=== PATIENT | male | born 1960 | race Caucasian/White ===

== ENCOUNTER 2023-02-04 12:09 | Outpatient (OUT) | payer OTHER, SELFPAY ==
[2023-02-04 12:36] LABS: Basophils Percent Auto 0.6 % (0.2-2.0); Eosinophils Absolute Auto 0.1 10^3/uL (0.0-0.7); Eosinophils Percent Auto 1.9 % (0.9-7.0); Hematocrit 42.9 % (42.0-54.0); Hemoglobin 14.1 g/dL (14.0-18.0); Immature Granulocytes Abs Auto 0.02 10^3/uL (0.00-0.03); Immature Granulocytes Pct Auto 0.3 % (0.0-0.5); Lymphocytes Absolute Auto 1.8 10^3/uL (1.2-3.8); Lymphocytes Percent Auto 29.1 % (20.5-60.0); Mean Corpuscular HGB Conc 32.9 g/dL (29.9-35.2); Mean Corpuscular Hemoglobin 28.3 pg (25.9-34.0); Mean Platelet Volume 9.5 fL (9.5-13.5); Monocytes Absolute Auto 0.5 10^3/uL (0.3-0.8); Monocytes Percent Auto 7.9 % (1.7-12.0); Neutrophils Absolute Auto 3.7 10^3/uL (1.4-6.5); Neutrophils Percent Auto 60.2 % (43.0-75.0); Platelet Count 235 10^3/uL (150-450); Red Blood Count 4.99 10^6/uL (4.70-6.10); Red Cell Distribution Width 13.8 % (11.0-15.0); White Blood Count 6.2 10^3/uL (4.0-11.0)
[2023-02-04 13:16] LABS: Alanine Aminotransferase 28 U/L (16-63); Albumin Globulin Ratio 1.1; Albumin Level 3.8 g/dL (3.4-5.0); Alkaline Phosphatase 67 U/L (46-116); Anion Gap 13.1; Aspartate Amino Transferase 13 U/L (15-37); BUN Creatinine Ratio 17.5; Bilirubin Direct 0.1 mg/dL (0.0-0.2); Bilirubin Total 0.8 mg/dL (0.2-1.0); Calcium 8.6 mg/dL (8.5-10.1); Carbon Dioxide 25.8 mmol/L (21.0-32.0); Chloride 103 mmol/L (98-107); Chol HDL Ratio 6.7; Cholesterol 242 mg/dL (<=200); Estimated GFR (African America >60 (>=60); Estimated GFR (Non-African Ame >60 (>=60); Globulin 3.6 g/dL; Glucose 103 mg/dL (74-106); HDL Cholesterol 36 mg/dL (40-60); Potassium 3.9 mmol/L (3.5-5.1); Sodium 138 mmol/L (136-145); Thyroid Stimulating Hormone 2.779 uIU/mL (0.358-3.740); Total Protein 7.4 g/dL (6.4-8.2); Triglycerides 171 mg/dL (<=150); VLDL CHOLESTEROL 34.2 mg/dL
[2023-02-04 13:23] LABS: Prostate Specific Antigen Scrn 0.36 ng/mL (<=4.00)
[2023-02-04 13:26] LABS: Estimated Average Glucose 128 mg/dL; Glycohemoglobin A1C 6.1 % (4.5-6.2)
== END 2023-02-04 12:10 | disposition home or self-care (01) ==
LOC: LAB 12:12
PROVIDERS: PCP Family Medicine; Visit Provider Family Medicine
DX: Z00.00 Encounter for general adult medical examination without abnormal findings (principal); N52.9 Male erectile dysfunction, unspecified
CPT/HCPCS: 36415; 80048; 80061; 80076; 83036; 84443; 85025; G0103

== ENCOUNTER 2025-01-10 10:43 | Outpatient (OUT) | payer MEDICARE, SELFPAY ==
--- OUTSIDE RECORDS SUMMARY | 2025-01-10 05:41 | XMS_ITS | Continuity of Care Document ---
Author Organization [facility] Address [address] [place] [address] Phone Care Team Providers Care Senior Hr Generalist Name Role Phone Sami Gaines MD Primary Care Provider [phone] Sami Gaines MD Attending Provider Care Teams Patient Care Team Team Status: Active Member Role/Relationship Status Dates Sami Gaines MD Primary Care Provider Active Patient Care Team Team Status: Inactive Member Role/Relationship Status Dates Sami Gaines MD Primary Care Provider Active S tart: January 10, 2025 End: January 10, 2025[facility] JESUS Gainesttending ProviderActiveStart: January 10, 2025 End: January 10, 2025 Chief Complaint and Reason for Visit Reason for Visit Admit Date Medicare annual wellness visit, subseque nt January 10, 2025 9:56am Allergies, Adverse Reactions, Alerts Allergen Type Severity Reaction Last Updated Verified Status lisinopril Allergy Unknown Cough January 10, 2025 10:14am Y es Active Social History Smoking Status Status Start Date End Date Date of Observa tion Ex-smoker (finding) January 10, 2025 10:15am Observation Status Observation Response Date of Response Legal Sex Male (finding) Sex Assigned At BirthMaleFebruary 1960 Problems Active Problems Problem Diagnosis/Recorded Date Onset Date Stat us Osteoarthritis, chronic January 06, 2025 11:40am Unk nown Active Bilateral leg edema January 10, 2025 10:17am Unknow n Active Medicare annual wellness vis it, subsequent January 10, 2025 10:17am Unknown Active Recurrent major depressive disorder January 10 10:17am Unknown Active Generalized anxiety disorder January 06, 2025 11:39a m Unknown Active Impotence of organic origin January 06, 2025 11:39am Unknown Active Essential hypertension, benign January 06, 2025 11:3 9am Unknown Active Dyslipidemia January 06, 2025 11:39am Unknown A ctive Encounter for long-term (cur rent) use of medications January 10, 2025 10:17am Unknown Active Prediabetes January 06, 2025 11:40am Unknown A ctive Obesity January 10, 2025 10:17am Unknown Active Inactive/Resolved Problems Problem Diagnosis/Recorded Date Onset Date Stat us Polyuria January 06, 2025 11:40am Unknown R esolved Medications Medication Status Dose Units Route Directions Qty Days Refills S tart Date Stop Date End Date Reason(s) Instructions Adherence Losartan 50 mg tablet Active 50 MG PO Daily 90 90 3 December 09, 2024 11:00pm Complies with drug therapyNifedipine 90 mg tablet extended wjumfsjFueunj25JLFM Kvscl71556Wkzqohy 2024 11:00pmComplies with drug therapySpironolactone 50 mg wczzeoKsjaem55TWUTDtulz81458Gdvqkbb 2024 11:00pmComplies with drug therapyFluoxetine 40 mg ooewmxeVhsksl93ITHLDahkeEyzlxpdw 6th, 2025 12:00am Complies with drug therapy Vital Signs Vital Reading Result Reference Range Collection Date/Time Height 74 [in_i] January 10, 2025 10:82huKwycqg249.74 kgJanuary 10, 2025 10:13amBody Zgfpneuerjv79.8 [degF]97.6-99.0January 10, 2025 10:13amHeart Rate84 /min 60-100January 10, 2025 10:13amRespiratory rate22 /zsr27-99GapbcyzzJanuary 10, 2025 10:13amOxygen saturation by Pulse giaqycae37 %95-100January 10, 2025 10:13am BP Desbfvij569 mm[Hg]100-140January 10, 2025 10:13amBP Ywllfcwqr92 mm[Hg] 60-100January 10, 2025 10:13amBMI (Body Mass Index)46.3 kg/g7KewwyrxwJanuary 10, 2025 10:13am Advance Directives Advance Directive Response Recorded Date/ Time Advance Directives No May 14 018 1:15pm Insurance Providers Guarantor Moustapha Alarcon Address [address] [place] [address] Info.Home Phone: Coverage Status Update:2025 Payer Group Member ID Coverage Type Subscriber Relationship to Subscriber Effective Date Expiration Date Scar PATEL/SAMUEL [id number] S [place] Id: [id number] [address] [place] [address] Home Phone: Email: [email or web address] Encounters Encounter Location(s) Arrival/Admit Date Discharge/Departure Date Discharge/Departure Disposition Provider(s) Departed Physician/ Provider Office Visit -[facility] Family Medicine Rod January 10, 2025 9:56am January 10, 2025 10:27am Discharged to home care or self care (routine discharge) Sami Gaines MD Recent Diagnosis Onset Date Admit Date Medicare annual wellness visit, subsequent Unkno wn January 10, 2025 9:56am Assessments Diagnosis Onset Date Resolution Status Admit Date Medicare annual wellness visit, subseque nt acuteNov2024 9:56am Plan of Treatment Future Tests Future scheduled test information is unavailable Pending Tests Test Name Ordered Date Scheduled Date Comprehensive Metabolic Panel January 10 10:22am Future Visits Future appointment information is unavailable Future Procedures Procedure Name Ordered Date Scheduled Date A1C with Estimated Average Glu January 10 10:22am Complete Blood Count Auto DiffNov2024 10:22amLipid PanelNov2024 10:22amPSA Screen (Yearly Only)January 10, 2025 10:22amThyroid Stimulating HormoneNov2024 10:22am Future Medications Future medication information is unavailable Patient Instructions Patient instructions are unavailable
--- OUTSIDE RECORDS SUMMARY | 2025-01-10 10:50 | XMS_ITS | Clinical Summary ---
Author Organization [facility] Address [id number] [address] [place] [address] Care Team Providers Care Chief Learning Officer Name Role Phone Sami Gaines MD Primary Care Provider [phone] Social History Tobacco UseTypesPacks/DayYears UsedDateSmoking Tobacco: Never AssessedChildcare AnswerDate QllwahecZmnquzxcuCgclyhv19/12/2019EmploymentAnswerDate Recorded LabviiknwkZulglay55/12/2019Sex and Gender InformationValueDate RecordedSex Assigned at BirthNot on fileLegal CaxXbqy8610/06/2014 11:35 AM EDTGender Identity Not on fileSexual OrientationNot on file Plan of Treatment Health MaintenanceDue DateLast DoneCommentsDepression Ojxnlomjt72/14/1972Tobacco Dxdhgrciu39/14/1972Adult BMI Ufudrpoty77/14/1978DTaP,Tdap and Td Vaccines (1 - Tdap)1978Zoster (Shingles) Vaccine (1 of 2)2009Fall Risk Screening 2024Influenza Wvrixzz1311/01/2024RSV ( or age 60+ yrs) (1 - 1-dose 75+ series)2034 [employer] Not on file Care Teams Team MemberRelationshipSpecialtyStart DateEnd Date Sami Gaines MD PCP - GeneralFamily Medicine07/07/24
--- OUTSIDE RECORDS SUMMARY | 2025-01-10 10:50 | XMS_ITS | Clinical Summary ---
Author Organization [facility] Address [address] [place] [address] Care Team Providers Care Operations Research Group Manager Name Role Phone Sami Gaines MD Primary Care Provider [phone] Allergies Active AllergyReactionsCriticalityNoted VkibMmrnujglOvrbmfkyguKocto52/14/2024 Medications MedicationSigDispense QuantityRefillsLast FilledStart DateEnd DateStatus losartan (Cozaar) 50 MG tablet Indications:Essential (primary) hypertensionTAKE 1 TABLET BY MOUTH DAILY 90 tablet 4Active NIFEdipine XL (Procardia XL) 90 MG 24 hr tablet Indications:Essential hypertension, benignTake 1 tablet (90 mg) by mouth Daily Do not crush, chew, or split. 90 tablet 4Active spironolactone (Aldactone) 50 MG tablet Indications:Edema of both legsTAKE 1 TABLET BY MOUTH ONCE DAILY 90 tablet 5Active FLUoxetine (PROzac) 40 MG capsule Indications:Current mild episode of major depressive disorder without prior episodeTAKE 1 CAPSULE BY MOUTH DAILY 90 capsule 5Active Active Problems ProblemNoted DateDiagnosed ViiyLicnnbnckvz44/06/2025Encounter for long-term (current) use of pzraxeaxfii10/06/7848Gxhzkstv80/06/2025Screening PSA (prostate specific antigen)07/06/2024Streptococcus vcyqiyvv51/06/2025 Assessment & Plan (07/06/2024 11:23 AM EDT): C/o sore throat and with strep. Treat with amoxicillin. Class 3 severe obesity due to excess calories with serious comorbidity and body mass index (BMI) of45.0 to 49.9 in adult11/07/2023 Assessment & Plan (07/06/2024 11:22 AM EDT): Weight loss indicated. Assessment & Plan (11/07/2023 9:46 AM EDT): Weight down 7 pounds since last visit. Essential hypertension, txntqg2205/28/2023 Assessment & Plan (07/06/2024 11:22 AM EDT): BP elevated today but previously controlled and monitor PRN. Assessment & Plan (11/07/2023 9:46 AM EDT): BP elevated today but previously controlled and monitor PRN. Assessment & Plan (05/28/2023 7:39 AM EDT): BP controlled and monitor PRN. Bilateral leg edema05/28/2023 Assessment & Plan (07/06/2024 11:22 AM EDT): Edema controlled with medication and continue. Elevate legs PRN. Assessment & Plan (11/07/2023 9:45 AM EDT): Edema controlled with medication and continue. Elevate legs PRN. Assessment & Plan (05/28/2023 7:39 AM EDT): Edema controlled with medication and continue. Elevate legs PRN. Allergic rhinitis due to pncjuj0705/28/2023 Assessment & Plan (11/07/2023 9:45 AM EDT): Symptoms controlled with medication and continue. Assessment & Plan (05/28/2023 7:40 AM EDT): Symptoms controlled with medication and continue. Cetwrxgmdjda95/27/2024Generalized anxiety ceryqndw29/27/2024 Assessment & Plan (07/06/2024 11:22 AM EDT): Mood controlled with prozac and continue. Assessment & Plan (11/07/2023 9:46 AM EDT): Mood controlled with prozac and continue. Assessment & Plan (05/28/2023 7:39 AM EDT): Mood controlled with prozac and continue. Impotence of organic wvldne1805/28/2023Osteoarthritis, rwfmjkf0605/28/2023urrent mild episode of major depressive disorder without prior llsrhhx1905/28/2023 Assessment & Plan (07/06/2024 11:22 AM EDT): Mood controlled with prozac and continue. Assessment & Plan (11/07/2023 9:45 AM EDT): Mood controlled with prozac and continue. Assessment & Plan (05/28/2023 7:39 AM EDT): Mood controlled with prozac and continue. Resolved Problems ProblemNoted DateDiagnosed DateResolved DateURI, acute Family History Medical HistoryRelationNameCommentsHeart diseaseFatherRelationNameStatusComments Father Social History Tobacco UseTypesPacks/DayYears UsedDateSmoking Tobacco: NeverSmokeless Tobacco: Never Tobacco Cessation:Counseling Given: Not Answered B1300 Health LiteracyAnswerDate RecordedHow often do you need to have someone help you when you read instructions, pamphlets, or other written material from your doctor or pharmacy?Never05/05/2024Social Connection and Isolation Panel AnswerDate RecordedIn a typical week, how many times do you talk on the phone with family, friends, or neighbors?More than three times a week05/05/2024How often do you get together with friends or relatives?Twice a week05/05/2024How often do you attend quaker or lutheran services?Never05/05/2024Do you belong to any clubs or organizations such as quaker groups, unions, fraternal or athletic groups, or school groups?Yes05/05/2024How often do you attend meetings of the clubs or organizations you belong to?More than 4 times per year05/05/2024re you , , , , never , or living with a partner? Slarvlf5505/05/2024UDIT-CAnswerDate RecordedQ1: How often do you have a drink containing alcohol?Never05/05/2024Q2: How many drinks containing alcohol do you have on a typical day when you are drinking?Patient does not drink05/05/2024Q3: How often do you have six or more drinks on one occasion?Never05/05/2024Overall Financial Resource Strain (CARDIA)AnswerDate RecordedHow hard is it for you to pay for the very basics like food, housing, medical care, and heating?Not hard at all05/05/2024Finmount[facility]star healthcare [facility] - Occupational Stress QuestionnaireAnswerDate RecordedDo you feel stress - tense, restless, nervous, or anxious, or unable to sleep at night because yourmind is troubled all the time - these days?To some pbbisn7305/05/2024Exercise Vital SignAnswerDate Recorded On average, how many days per week do you engage in moderate to strenuous exercise (like a brisk walk)?5 days05/05/2024On average, how many minutes do you engage in exercise at this level?10 min05/05/2024Hunger Vital SignAnswerDate RecordedWithin the past 12 months, you worried that your food would run out before you got the money to buymore.Never true05/05/2024Within the past 12 months, the food you bought just didn't last and you didn't have money to get more.Never true05/05/2024PRAPARE - TransportationAnswerDate RecordedIn the past 12 months, has lack of transportation kept you from medical appointments or from getting medications?No05/05/2024In the past 12 months, has lack of transportation kept you from meetings, work, or from getting things needed for daily living?No05/05/2024Housing Stability Vital SignAnswerDate RecordedIn the last 12 months, was there a time when you were not able to pay the mortgage or rent on time?No05/05/2024In the past 12 months, how many times have you moved where you were living?t any time in the past 12 months, were you homeless or living in a fci (including now)?No05/05/2024Sex and Gender InformationValueDate RecordedSex Assigned at BirthNot on fileLegal SexMale 05/15/2022 7:22 PM EDTGender UyfhtameKarq34/15/2023 7:22 PM EDTSexual OrientationNot on file Last Filed Vital Signs Vital SignReadingTime TakenCommentsBlood Aawzksiu228/8207/06/2024 10:45 AM EDT Jytvq451507/06/2024 10:45 AM RISLuihkkwsgsi50.2 ??C (97.1 ??F)07/06/2024 10:45 AM EDTRespiratory Sloe452307/06/2024 10:45 AM EDTOxygen Dtwsskgfzr74%07/06/2024 10:45 AM EDTInhaled Oxygen Concentration--Xuipfa932 kg (361 lb)07/06/2024 10:45 AM EDT Mrnpno130.5 cm (6' 3 )07/06/2024 10:45 AM EDTBody Mass Index45.12007/06/2024 10:45 AM EDT Plan of Treatment Not on file Insurance Care Teams Team MemberRelationshipSpecialtyStart DateEnd Date Sami Gaines MD PCP - GeneralFamily Medicine04/16/23
--- OUTSIDE RECORDS SUMMARY | 2025-01-10 10:52 | XMS_ITS | CCD ---
Author Organization [facility] Team Providers Care Entry Level Software Engineer Name Role Phone DR SAMI RODRIGUEZ Attending Unavailable JENNIFER, DR SAMI Rand Consulting DR SAMI Esteves Primary Care Unavailable JENNIFER, DR SAMI Rand Admitting Unavailable Sami Rodriguez MD Primary Care Provider [phone] TELMA SHERIDAN Attending Unavailable JENNIFER, SAMI Attending Unavailable SAMI RODRIGUEZ Attending Unavailable Sami Rodriguez MD Primary Care Provider Allergies Allergy ClassificationReported Allergen(s)Allergy TypeDate of OnsetReaction(s) Facility (9 sources)LisinoprilPropensity to adverse mmmgainca97-73-8699DqlpqBTVO Healthcare Medications Current Medications MedicationDrug Class(es)DatesSig (Normalized)Sig (Original)amoxicillin 875 mg oral tablet (2 sources)Penicillin-class AntibacterialStart: 07-06-2024 End: 24-42-7749xdbt 1 tablet by mouth in the morningamoxicillin (Amoxil) 875 MG tablet Indications: Streptococcus exposure Take 1 tablet (875 mg) by mouth in the morning and 1 tablet (875 mg) before bedtime. Do all this for 10 days. 20 tablet 07/06/2024 07/16/2024 ActiveFLUoxetine 40 mg oral capsule (9 sources)Serotonin Reuptake InhibitorStart: 05-14-2023 End: 27-39-5047nfqs 1 capsule by mouth once dailyFLUoxetine (PROzac) 40 MG capsule Indications: Current mild episode of major depressive disorder without prior episode (HCC) (CMS/HCC) TAKE 1 CAPSULE BY MOUTH DAILY 90 capsule 3 05/12/2024 Activelosartan potassium 50 mg oral tablet (9 sources)Angiotensin 2 Receptor BlockerStart: 13-80-0249cqmn 1 tablet by mouth once dailylosartan (Cozaar) 50 MG tablet Indications: Essential (primary) hypertension (CMS/HCC) TAKE 1 TABLET BY MOUTH DAILY 90 tablet 3 11/26/2023 Activetake 1 tablet by mouth in the morninglosartan (Cozaar) 50 MG tablet Take 50 mg by mouth in the morning. Activemethocarbamol 750 mg oral tablet (9 sources)Muscle Relaxant End: 73-27-0447wblb 1 tablet by mouth three times daily as needed for muscle spasmsmethocarbamol (Robaxin) 750 MG tablet Take 750 mg by mouth 3 (three) times a day as needed for muscle spasms 07/06/2024 DiscontinuedNIFEdipine 90 mg osmotic 24 hr extended release oral tablet (9 sources)Dihydropyridine Calcium Channel BlockerStart: 12-10-2023 End: 62-87-3396qink 1 tablet by mouth once dailyNIFEdipine XL (Procardia XL) 90 MG 24 hr tablet Indications: Essential hypertension, benign (CMS/HCC) Take 1 tablet (90 mg) by mouth Daily Do not crush, chew, or split. 90 tablet 3 12/10/2023 12/09/2024 Activetake 1 tablet by mouth every twenty-four hours in the morningNIFEdipine XL (Procardia XL) 90 MG 24 hr tablet Take 90 mg by mouth in the morning. Do not crush, chew, or split.. Activesildenafil 50 mg oral tablet (9 sources)Phosphodiesterase 5 Inhibitor End: 36-01-5870cpiu 1 tablet by mouth every twenty-four hours as needed sildenafil (Viagra) 50 MG tablet Take 50 mg by mouth Daily as needed for erectile dysfunction 07/06/2024 Discontinuedspironolactone 50 mg oral tablet (9 sources)Aldosterone AntagonistStart: 81-05-6496qehp 1 tablet by mouth once dailyspironolactone (Aldactone) 50 MG tablet Indications: Edema of both legs TAKE 1 TABLET BY MOUTH ONCEDAILY 90 tablet 3 03/08/2024 ActiveStart: 03-07-2023 take 1 tablet by mouth once dailyspironolactone (Aldactone) 50 MG tablet Indications: Edema of both legs TAKE 1 TABLET BY MOUTH ONCEDAILY 90 tablet 3 03/07/2023 Active Problems Active Problems Problem ClassificationProblemDateDocumented DateEpisodic/ChronicAnxiety disorders (13 sources)Generalized anxiety disorder; Translations: [Generalized anxiety disorder]Onset: 301253-46-1166UfearpmJhunhjku mellitus without complication (4 sources)Prediabetes; Translations: [Prediabetes]Onset: EpisodicDisorders of lipid metabolism (11 sources)Dyslipidemia; Translations: [Hyperlipidemia, unspecified]Onset: 983441-80-3009NhobwbkWdaiwcjho hypertension (13 sources)Benign essential hypertension; Translations: [Essential (primary) hypertension]Onset: 096407-88-9109IzgwlhsPjcsrpcvwqoic symptoms and ill- defined conditions (4 sources)Polyuria; Translations: [Polyuria]Onset: 209184-70-9356Kovlwkqt Immunizations and screening for infectious disease (4 sources)Exposure to Streptococcus; Translations: [Contact with and (suspected) exposure to other bacterial communicable diseases]Onset: 07-06-2024 82-35-2348QoodzoxhNxoa disorders (13 sources)Mild major depression, single episode; Translations: [Major depressive disorder, single episode, mild]Onset: hronic Osteoarthritis (9 sources)Chronic osteoarthritis; Translations: [Unspecified osteoarthritis, unspecified site]Onset: 148669-25-1142WvodopnQfloh aftercare (4 sources)Long-term current use of drug therapy; Translations: [Other assisted (current) drug therapy]Onset: 803562-62-1889TwtpjiefWwffu ear and sense organ disorders (2 sources)Decreased hearing ; Translations: [Unspecified hearing loss, bilateral]61-78-0723UapuncsHiixr ear and sense organ disorders (2 sources)Impacted cerumen of bilateral ears; Translations: [Impacted cerumen, bilateral]83-19-8586TnpabpseKbrtk male genital disorders (9 sources)Secondary erectile dysfunction; Translations: [Male erectile dysfunction, unspecified]Onset: 709776-15-9655KljuvwdDjljt nutritional; endocrine; and metabolic disorders (2 sources)Body mass index 40+ - severely obese; Translations: [Body mass index (BMI) 40.0-44.9, adult]36-46-4625PafffrrYxyrt nutritional; endocrine; and metabolic disorders (6 sources)Morbid obesity; Translations: [Morbid (severe) obesity due to excess calories]Onset: 905377-18-7155UunrepvPdoom nutritional; endocrine; and metabolic disorders (4 sources)Severe obesity; Translations: [Class 3 severe obesity due to excess calories with serious comorbidity and body mass index (BMI) of 45.0 to 49.9 in adult]Onset: 559035-27-0668BdjjhenXabzw screening for suspected conditions (not mental disorders or infectious disease) (7 sources)Encounter for screening for malignant neoplasm of prostate; Translations: [Patient encounter status]Onset: 687596-15-1078EngehqtpNpysh upper respiratory disease (11 sources)Allergic rhinitis due to pollen; Translations: [Allergic rhinitis due to pollen]Onset: 380996-86-3930YebtrbsZsmaopoj codes; unclassified (13 sources)Bilateral lower limb edema; Translations: [Localized edema]Onset: 040279-18-8862Ccztdioa Past or Other Problems Problem ClassificationProblemDateDocumented DateEpisodic/ChronicOther upper respiratory infections (9 sources)Acute upper respiratory infection; Translations: [Acute upper respiratory infection, unspecified]Onset: 02-03-2023 Resolved: 755783-45-9529IfmduikjJdrcmkgbgrur (2 sources)Patient encounter vaighh64-17-2134 Results Test NameValueInterpretationReference RangeFacilityCBC AUTO DIFFon 11-27-2021 BASO #0.0 103/ulNormal0.0-0.1The [facility] AdministrationComment on above:Performed By: #### CBC #### [facility] [address], [place] [address] Dr. Kulwinder Kingsophils/100 WBC (Bld)0.6 %Normal0.2-2.0[facility] Comment on above:Performed By: #### CBC #### [facility] [address], [place] [address] Dr. Miramontes ChangEHiwot #0.1 103/ulNormal0.0-0.7The [facility] AdministrationComment on above: Performed By: #### CBC #### [facility] [address] [place] [address] Dr. Kulwinder Foremanosinophils/100 WBC (Bld)1.5 %Normal0.9-7.0The [facility] on above:Performed By: #### CBC #### [facility] [address] [place] [address] Dr. Kulwinder Foremanrythrocyte distribution width (RBC) [Ratio]14.4 %Krqrsw09.0-15.0 The [facility] AdministrationComment on above:Performed By: #### CBC #### [facility] [address] [place] [address] Dr. Kulwinder ClevelandHematocrit (Bld) [Volume fraction]46.8 %Huoekh75.0-54.0The [facility] AdministrationComment on above:Performed By: #### CBC #### [facility] [address] [place] [address] Dr. Kulwinder ClevelandHemoglobin (Bld) [Mass/Vol]14.6 g/hAHwonas41.0-18.0The [facility] AdministrationComment on above:Performed By: #### CBC #### [facility] [address] [place] [address] Dr. Kulwinder Alford #0.02 10e3/ulNormal0.00-0.03The [facility] Health AdministrationComment on above:Performed By: #### CBC #### [facility] [address] [place] [address] Dr. Kulwinder Alford %0.3 %Normal0.0-0.5The [facility] AdministrationComment on above: Performed By: #### CBC #### [facility] [address] [place] [address] Dr. Kulwinder SchwartzH #1.6 103/ulNormal1.2-3.8The [facility] AdministrationComment on above:Performed By: #### CBC #### [facility] [address] [place] [address] Dr. Kulwinder Welchmphocytes/100 WBC (Bld)24.0 %Pzikip86.5-60.0The [facility] AdministrationComment on above:Performed By: #### CBC #### [facility] [address] [place] [address] Dr. Kulwinder Crawford DIFF REQNONormalThe Veterans Health AdministrationComment on above: Performed By: #### CBC #### [facility] [address] [place] [address] Dr. Kulwinder Sanchez (RBC) [Entitic mass]27.8 tvUcqckt71.9-34.0The [facility] AdministrationComment on above:Performed By: #### CBC #### [facility] [address] [place] [address] Dr. Kulwinder Sanchez (RBC) [Mass/Vol]31.2 g/aFTxadvw74.9-35.2The [facility] AdministrationComment on above:Performed By: #### CBC #### [facility] [address] [place] [address] Dr. Kulwinder Chaves (RBC) [Entitic vol]89.0 jCYbjevr93.0-94.0The [facility] AdministrationComment on above:Performed By: #### CBC #### [facility] [address] [place] [address] Dr. Kulwinder Potts #0.5 103/ulNormal0.3-0.8The [facility] AdministrationComment on above:Performed By: #### CBC #### [facility] [address] [place] [address] Dr. Kulwinder Owensocytes/100 WBC (Bld)7.9 %Normal1.7-12.0[facility] Comment on above:Performed By: #### CBC #### [facility] [address] [place] [address] Dr. Kulwinder Lopez #4.4 103/ulNormal1.4-6.5The [facility] AdministrationComment on above:Performed By: #### CBC #### [facility] [address] [place] [address] Dr. Yilan ChangNeutrophils/100 WBC (Bld)65.7 %Hezzin64.0-75.0The [facility] AdministrationComment on above:Performed By: #### CBC #### [facility] [address] [place] [address] Dr. Kulwinder Chavez mean volume (Bld) [Entitic vol]10.1 fLNormal9.5-13.5The [facility] Health AdministrationComment on above:Performed By: #### CBC #### [facility] [address] [place] [address] Dr. Kulwinder ClevelandPLT307 103/vnAztktu387-143Ysc [facility] AdministrationCommymichigan [facility] center on above: Performed By: #### CBC #### [facility] [address] [place] [address] Dr. Kulwinder ClevelandRBC5.26 106/ulNormal4.70-6.10The [facility] AdministrationComment on above:Performed By: #### CBC #### [facility] [address] [place] [address] Dr. Kulwinder ClevelandWBC6.8 103/ulNormal4.0-11.0The [facility] AdministrationComment on above: Performed By: #### CBC #### [facility] [address] [place] [address] Dr. Kulwinder ClevelandGLYCOHEMOGLOBIN A1Con 91-20-6722MNU RECOMMENDATIONSEE BELOWNormal The [facility] AdministrationCommymichigan medical center on above:Result Comment: ADA RECOMMENDED LIMIT 4.0 - 6.0 ADA THERAPEUTIC TARGET < 7.0 ACTION SUGGESTED > 7.0Performed By: #### A1C #### [facility] [address] [place] [address] Dr. Kulwinder ClevelandGlucose [Mass/Vol]128 mg/dLNormalThCleveland Clinic Avon HospitalCommymichigan medical center on above:Performed By: #### A1C #### [facility] [address] [place] [address] Dr. Kulwinder ClevelandHbA1c (Bld) [Mass fraction]6.1 %Normal4.5-6.2The [facility] AdministrationCommymichigan medical center on above:Performed By: #### A1C #### [facility] [address] [address] [address] Kulwinder CifuentesID PROFILEon 87-47-1039ZFXM-HDL RATIO NORMSThe [facility] on above:Result Comment: 3.3 - 4.4 LOW RISK 4.4 - 7.1 AVERAGE RISK 7.1 - 11.0 MODERATE RISK >11.0 HIGH RISKPerformed By: #### BMP, LIVER, LIPID, TSH #### [facility] [address] [address] [address] Kulwinder ClevelandCholesterol [Mass/Vol]255 mg/dLCritically high<=200The [facility] on above:Performed By: #### BMP, LIVER, LIPID, TSH #### [facility] [address] [address] [address] Kulwinder ClevelandCholesterol in HDL [Mass/Vol]37 mg/dLCritically gep31-31Gmq [facility] on above:Performed By: #### BMP, LIVER, LIPID, TSH #### [facility] [address] [place] [address] Dr. Kulwinder ClevelandCholesterol in LDL [Mass/Vol]171.0 mg/dLMetroHealth Main Campus Medical CenterCommymichigan medical center on above:Performed By: #### BMP, LIVER, LIPID, TSH #### [facility] [address] [address] [address] Kulwinder Mirandaesterchristophe.total/Cholesterol in HDL [Mass ratio]6.9 {ratio} NormalCenterville on above:Performed By: #### BMP, LIVER, LIPID, TSH #### [facility] [address] [place] [address] Dr. Kulwinder ClevelandHDL NORMAL> or = 60 mg/dl - LOW CARDIOVASCULAR RISK <40 mg/dl - HIGH CARDIOVASCULAR RISKMetroHealth Main Campus Medical CenterCommymichigan medical center on above:Performed By: #### BMP, LIVER, LIPID, TSH #### [facility] [address] [place] [address] Dr. Kulwinder ClevelandLDL CALC NORMALSEE [facility] HospitalCommymichigan medical center on above:Result Comment: <100 mg/dl OPTIMAL 100 - 129 mg/dl NEAR OR ABOVE OPTIMAL 130 - 159 mg/dl BORDERLINE HIGH 160 - 189 mg/dl HIGH >190 mg/dl VERY HIGH Performed By: #### BMP, LIVER, LIPID, TSH #### [facility] [address] [address] [address] Kulwinder ClevelandTriglyceride [Mass/Vol]235 mg/dLCritically high<=150The [facility] on above:Performed By: #### BMP, LIVER, LIPID, TSH #### [facility] [address] [address] [address] Kulwinder ClevelandVLDL CALC47.0 mg/dLNormalThe Veterans Health AdministrationComment on above: Performed By: #### BMP, LIVER, LIPID, TSH #### [facility] [address] [place] [address] Dr. Kulwinder Pelaez PROFILEon 85-45-2750Afqsptv [Mass/Vol]4.1 g/dLNormal3.4-5.[address] [facility] on above:Performed By: #### BMP, LIVER, LIPID, TSH #### [facility] [address] [place] [address] Dr. Kulwinder ClevelandAlbumin/Globulin [Mass ratio]1.1 {ratio}NormalThe [facility] on above:Performed By: #### BMP, LIVER, LIPID, TSH #### [facility] [address] [place] [address] Dr. Kulwinder Vaz [Catalytic activity/Vol]68 U/EWbasmr18-997Euy [facility] on above:Performed By: #### BMP, LIVER, LIPID, TSH #### [facility] [address] [place] [address] Dr. Kulwinder Kaur [Catalytic activity/Vol]32 U/UIolhmg94-42G[facility] on above:Performed By: #### BMP, LIVER, LIPID, TSH #### [facility] [address] [place] [address] Dr. Kulwinder ClevelandAST [Catalytic activity/Vol]12 U/LCritically zyp06-28Tte [facility] HospitalComment on above:Performed By: #### BMP, LIVER, LIPID, TSH #### [facility] [address] [address] [address] Kulwinder DelucaI, CONJUGATED0.1 mg/dLNormal0.0-0.2[facility] Comment on above:Performed By: #### BMP, LIVER, LIPID, TSH #### [facility] [address] [address] [address] Kulwinder ClevelandBilirubin [Mass/Vol]0.5 mg/dLNormal0.2-1.0[facility] Comment on above:Performed By: #### BMP, LIVER, LIPID, TSH #### [facility] [address] [address] [address] Kulwinder ClevelandGlobulin (S) [Mass/Vol]3.6 g/dLNormalThe [facility] Health AdministrationComment on above:Performed By: #### BMP, LIVER, LIPID, TSH #### [facility] [address] [address] [address] Kulwinder ClevelandProtein [Mass/Vol]7.7 g/dLNormal6.4-8.2[facility] Comment on above:Performed By: #### BMP, LIVER, LIPID, TSH #### [facility] [address] [place] [address] Dr. Kulwinder ClevelandPROF CHEM 8 (BAS METB)on 58-50-7322Gmgtm gap [Moles/Vol]11.3 mmol/LNormalAvita Health System Galion HospitalComment on above:Performed By: #### BMP, LIVER, LIPID, TSH #### [facility] [address] [address] [address] Kulwinder ClevelandCalcium [Mass/Vol]9.3 mg/dLNormal8.5-10.1[facility] Comment on above:Performed By: #### BMP, LIVER, LIPID, TSH #### [facility] [address] [address] [address] Kulwinder ClevelandChloride [Moles/Vol]104 mmol/YDxwzty54-437ZgnAvita Health System [facility] Comment on above:Performed By: #### BMP, LIVER, LIPID, TSH #### [facility] [address] [address] [address] Kulwinder ClevelandCO2 [Moles/Vol]29.5 mmol/ZKjzfen50.0-32.0[facility] Comment on above:Performed By: #### BMP, LIVER, LIPID, TSH #### [facility] [address] [place] [address] Dr. Kulwinder ClevelandCreatinine [Mass/Vol]0.89 mg/dLNormal0.70-1.30The [facility] AdministrationComment on above:Performed By: #### BMP, LIVER, LIPID, TSH #### [facility] [address] [place] [address] Dr. Kulwinder Graham-AF ENGLISH>60Normal>=60The [facility] AdministrationComment on above:Performed By: #### BMP, LIVER, LIPID, TSH #### [facility] [address] [place] [address] Dr. Kulwinder Graham-NON AF ENGLISH>60Normal>=60The [facility] AdministrationComment on above:Performed By: #### BMP, LIVER, LIPID, TSH #### [facility] [address] [place] [address] Dr. Kulwinder ClevelandGlucose [Mass/Vol]107 mg/dLCritically sjdb15-127Sxy [facility] Columbusment on above:Performed By: #### BMP, LIVER, LIPID, TSH #### [facility] [address] [place] [address] Dr. Kulwinder ClevelandPotassium [Moles/Vol]4.8 mmol/LNormal3.5-5.1[facility] Comment on above:Performed By: #### BMP, LIVER, LIPID, TSH #### [facility] [address] [place] [address] Dr. Kulwidner ClevelandSodium [Moles/Vol]140 mmol/NUljddx886-006NvsAvita [facility] Comment on above:Performed By: #### BMP, LIVER, LIPID, TSH #### [facility] [address] [place] [address] Dr. Kulwinder ClevelandUrea nitrogen [Mass/Vol]13.0 mg/dLNormal7.0-18.0The [facility] AdministrationComment on above:Performed By: #### BMP, LIVER, LIPID, TSH #### [facility] [address] [address] [address] Kulwinder Allan nitrogen/Creatinine [Mass ratio]14.6 mg/mgNormalThe [facility] Health AdministrationComment on above:Performed By: #### BMP, LIVER, LIPID, TSH #### [facility] [address] [address] [address] Kulwinder Decker 98-62-7789OWW4.211 uIU/mLNormal0.358-3.740The [facility] Health AdministrationComment on above:Performed By: #### BMP, LIVER, LIPID, TSH #### [facility] [address] [address] [address] Kulwinder Cleveland Vital Signs Date TimeVital SignValuePerforming HbobaoaveTnseyqjk54-34-8742 10:45-0400Body .5 cmSami Rodriguez MD Work Phone: [facility] WestVckffvkcqn28-87-9943 10:45-0400Body mass index (BMI) [Ratio]45.12 kg/m2Sami Rodriguez MD Work Phone: [facility] WestQocefkbjoa49-81-9066 10:45-0400Body temperature 97.11 [degF]Sami Rodriguez MD Work Phone: [facility] WestFvzpcppaop51-41-8951 10:45-0400Body lyjeuq708.75 kgSami Rodriguze MD Work Phone: [facility] WestCvqcpdlxuu76-29-1283 10:45-0400Diastolic blood rypysauw34 mm[Hg]Sami Rodriguez MD Work Phone: [facility] WestExondkwzxt18-10-2950 10:45-0400Heart rate87 /min Sami Rodriguez MD Work Phone: [facility] WestLtgfrszain85-92-5974 10:45-0400Respiratory rate18 /minSami Rodriguez MD Work Phone: [facility] WestKlekaucpft62-31-8303 10:45-8033EcY5% (BldA) [Mass fraction]93 %Sami Rodriguez MD Work Phone: [facility] WestNrbjjjzhlh55-12-9280 10:45-0400Systolic blood mhmknema912 mm[Hg]Sami Rodriguez MD Work Phone: [facility] WestPehyclhemc14-50-9855 12:25-0500Body mass index (BMI) [Ratio]43.25 kg/u8Ejdgube Shad APPRAISAL SPECIALIST Work Phone: [facility] WestMdboqigkdl67-13-6258 12:25-0500Body temperature 98.01 [degF]Telma Sheridan APPRAISAL SPECIALIST Work Phone: [phone] [place], [place] [address]Nupaozkarm14-03-1471 12:25-0500Body tffryu811.94 kgLinmelissa Sheridan APPRAISAL SPECIALIST Work Phone: [phone]-[address] WestWjujrpuzsk00-01-1734 12:25-0500Diastolic blood cddrqebz61 mm[Hg]Telma Sheridan APPRAISAL SPECIALIST Work Phone: [phone]-5151[facility] WestFdvrkwhwkp35-59-8997 12:25-0500Heart rate66 /min Telma Sheridan APPRAISAL SPECIALIST Work Phone: [phone]-[address] WestAehgoczena70-55-5606 12:25-0500Respiratory rate20 /minSudhamelissa Sheridan APPRAISAL SPECIALIST Work Phone: [phone]-62[address] WestCbkzjjtewb38-68-2869 12:25-7674ZlU3% (BldA) [Mass fraction]96 %Telma Sheridan APPRAISAL SPECIALIST Work Phone: [phone]-5081[facility] WestRkyrqfaneg21-97-3233 12:25-0500Systolic blood thetjpdw230 mm[Hg]Telma Sheridan APPRAISAL SPECIALIST Work Phone: [phone]-[address] [place], [place] [address]Oaxxwahaeg44-02-3263 09:19-0400Body xniqqd083.5 cmSami Rodriguez MD Work Phone: [facility] WestQcdaqstvqx89-11-9812 09:19-0400Body mass index (BMI) [Ratio]43.25 kg/m2Sami Rodriguez MD Work Phone: [facility] Oznjqqlwga55-26-2990 09:19-0400Body temperature 97.11 [degF]Sami Rodriguez MD Work Phone: noPhelps HealthCuvnrqcgqk54-37-6068 09:19-0400Body .94 kgSami Rodriguez MD Work Phone: [facility] Dminakvflo91-31-8644 09:19-0400Diastolic blood nqoputkq13 mm[Hg]Sami Rodriguez MD Work Phone: noPhelps HealthKfcgcuybxq39-40-8711 09:19-0400Heart rate78 /min Sami Rodriguez MD Work Phone: noPhelps HealthBzerojjeri59-00-1158 09:19-0400Respiratory rate20 /minSami Rodriguez MD Work Phone: noPhelps HealthBxvkmvexrv78-82-2921 09:19-9236ZxP9% (BldA) [Mass fraction]91 %Sami Rodriguez MD Work Phone: [facility] Sytoygnlqo42-08-4312 09:19-0400Systolic blood uqsvgaco051 mm[Hg]Sami Rodriguez MD Work Phone: [facility] Encounters Encounter DateEncounter TypeCare ProviderFacilityStart: 07-14-2024 End: 03-79-8236Fmrvnertd encounterJessquincy Yuan APRN-GROUND SUPPORT EQUIPMENT ASSEMBLER Work Phone: [facility] SurgeryStart: 07-06-2024 End: 10-63-2652Xnqrkp flowsheetSami Rodriguez MD Work Phone: [facility] FMStart: 07-06-2024 End: 06-78-4273Ljanhg flowsheetSami Rodriguez MD Work Phone: [facility] FMStart: 07-06-2024 End: 92-63-5928Zjrrwy outpatient visit 25 minutesSami Rodriguez MD Work Phone: [facility] FMComment on above:Essential hypertension, benign (CMS/HCC) (Primary Dx); Current mild episode of major depressive disorder without prior episode (HCC) (CMS/HCC); Generalized anxiety disorder (CMS/HCC); Bilateral leg edema; Class 3 severe obesity due to excess calories with serious comorbidity and body mass index (BMI) of45.0 to 49.9 in adult; Dyslipidemia (CMS/HCC); Encounter for long-term (current) use of medications; Polyuria; Prediabetes; Screening PSA (prostate specific antigen); Streptococcus exposure; Colon cancer screeningStart: 07-06-2024 End: 17-28-1618typggmndqrIGNY NADERERNot AvailableStart: 05-06-2024 End: 08-27-8190Ovzdak Ford Sheridan APPRAISAL SPECIALIST Work Phone: [facility]Start: 05-06-2024 End: 58-79-0579Vvpoqk Ford Sheridan APPRAISAL SPECIALIST Work Phone: [facility] UCStart: 05-06-2024 End: 27-26-8305ysvbukfgiqJXQMNEV N AUSTINNot AvailableStart: 05-06-2024 End: 41-88-0944Fhjrhw outpatient visit 15 minutesTelma Sheridan APPRAISAL SPECIALIST Work Phone: [facility] UCComment on above:Diminished hearing, bilateral (Primary Dx); Impacted cerumen, bilateralStart: 11-07-2023 End: 67-26-6884Riezma Lan Rodriguez MD Work Phone: [facility] FMStart: 11-07-2023 End: 11-87-3108Tnhogwterell Rodriguez MD Work Phone: [facility] FMStart: 11-07-2023 End: 11-73-0765Ajxriq outpatient visit 25 minutesSami Rodriguez MD Work Phone: [facility] FMComment on above:Essential hypertension, benign (CMS/HCC) (Primary Dx); Current mild episode of major depressive disorder without prior episode (HCC) (CMS/HCC); Generalized anxiety disorder (CMS/HCC); Bilateral leg edema; Seasonal allergic rhinitis due to pollen; Body mass index (BMI) 40.0-44.9, adult (CMS/HCC)Start: 11-07-2023 End: 11-42-5505yofjzutubvUBZH NADERERNot AvailableStart: 68-97-8458Cldgytohd for general adult medical examination without abnormal findingsDR SAMI JAMESRTmike [facility] HospitalStart: 11-27-2021 End: 29-70-0866jkquuxyjtqUS SAMI Rand NADLUCILARFacility:S1Fznko: 11-27-2021 End: 68-80-7245Srngaerbw for general adult medical examination without abnormal findingsDR SAMI Giorgi NADLUCILARFacility:H1 Procedures DateProcedureProcedure DetailPerforming ClinicianStart: 59-72-2537KJK screening DR SAMI SRomment on above:Performed By: #### [facility] #### [facility] [address] [place] [address] Dr. Kulwinder Cleveland Plan of Treatment DateCare ActivityDetailAuthorStart: 01-10-2025 End: 50-93-3489Yyiqoun encounter rnrefmwty82/10/2025 10:00 AM EST [facility] [address] [place] [phone] Sami Rodriguez MD [address] [place] [phone] [facility] FMStart: 69-00-1741Hfkjmmswx vaccinationNOFL HealthcareStart: 07-06-2024 End: 40-28-5826Ikcks metabolic 1998 panel - Serum or PlasmaBasic metabolic panel Lab Routine Essential hypertension, benign (CMS/HCC) Expected: 07/06/2024 (Dayana roximate), Expires: 07/06/2025NOFL HealthcareComment on above:Expected: 07/06/2024 (Approximate), Expires: 07/06/2025Start: 07-06-2024 End: 67-70-4556JJF W Auto Differential panel - BloodCBC and differential Lab Routine Encounter for long-term (current) use of medications Expected: 08/2024 (Approximate), Expires: 07/06/2025NOFL HealthcareComment on above: Expected: 07/06/2024 (Approximate), Expires: 07/06/2025Start: 07-06-2024 End: 59-93-0367Exifnzwkkj A1c/Hemoglobin.total in BloodHemoglobin A1c Lab Routine Prediabetes Expected: 07/06/2024 (Approximate), Expires: 07/06/2025NO Healthcare Work Phone: Comment on above:Expected: 07/06/2024 (Approximate), Expires: 07/06/2025Start: 07-06-2024 End: 57-48-4568Umarfnn function 2000 panel - Serum or PlasmaHepatic function panel Lab Routine Encounter for long-term (current) use of medications Expected: 07/06/2024 (Approximate), Expires: 07/06/2025NOFL HealthcareComment on above: Expected: 07/06/2024 (Approximate), Expires: 07/06/2025Start: 07-06-2024 End: 81-44-7027Kvuho 1996 panel - Serum or PlasmaLipid panel Lab Routine Dyslipidemia (CMS/HCC) Expected: 07/06/2024 (Approximate), Expires: 07/06/2025 N[facility] HealthcareComment on above:Expected: 07/06/2024 (Approximate), Expires: 07/06/2025Start: 07-06-2024 End: 15-92-6941Yxqmuctv specific Ag [Mass/volume] in Serum or PlasmaPSA Lab Routine Polyuria Screening PSA (prostate specific antigen) Expected: 07/06/2024 (Approximate), Expires: 07/06/2025NOFL HealthcareComment on above:Expected: 07/06/2024 (Approximate), Expires: 07/06/2025Start: 07-06-2024 End: 18-08-2392Lwomkeirvjl [Units/volume] in Serum or PlasmaTSH Lab Routine Class 3 severe obesity due to excess calories with serious comorbidity and body mass index (BMI) of 45.0 to 49.9 in adult Expected: 07/06/2024 (Approximate), Expires: 07/06/2025NOFL HealthcareComment on above:Expected: 07/06/2024 (Approximate), Expires: 07/06/2025Start: 07-06-2024 End: 43-40-6638Azkawlf encounter procedureNOMS CW FMComment on above:Arrived Start: 05-06-2024 End: 71-54-2763Nsboxro encounter qyzxovmur47/06/2025 9:00 AM EST Office Visit [facility] [address] [place] [address] Sami Rodriguez MD [address] [place] [phone] [facility] FMStart: 52-45-8138Ubdx Risk ScreeningFall Risk ScreeningMercy Health Clermont Hospital SystemStart: 38-47-0678Scowkeujcgav Vaccine: 65+ Years (1 of 1 - PCV) Pneumococcal Vaccine: 65+ Years (1 of 1 - PCV)[facility] HealthcareStart: 11-07-2023 End: 94-00-3475Urwffnq encounter ucrtuqzva05/06/2024 9:15 AM EDT Office Visit [facility] [address] [place] [address] Sami Rodriguez MD [address] [place] [phone] ArrivedNOMS [facility] FMComment on above:ArrivedStart: 59-59-4858Yldkiakrk vaccinationInfluenza Vaccine (#1)[facility] HealthcareStart: 39-32-6657Npidwvgpnaoakp of varicella zoster vaccineZoster (Shingles) Vaccine (1 of 2)[facility] SystemStart: 64-39-8898Mklesjwkminm Vaccine: 65+ Years (1 of 1 - PCV) Pneumococcal Vaccine: 65+ Years (1 of 1 - PCV)[facility] HealthcareStart: 1978 DTaP,Tdap and Td Vaccines (1 - Tdap)DTaP,Tdap and Td Vaccines (1 - Tdap) [facility] SystemStart: 81-68-7891Grqre BMI ScreeningAdult BMI Screening [facility]ertart: 75-68-5727Zigromocom ScreeningDepression Screening [facility] SystemStart: 62-61-8245Mngxzbt ScreeningTobacco Screening [facility] SystemStart: 02-14-1960Medicare Annual Wellness (AWV)Medicare Annual Wellness (AWV)[facility] HealthcareStart: 83-78-7800Rsnnatnqd for malignant neoplasm of colonNOMS Healthcare Payers DatePayer CategoryPayerPolicy [id number] (Managed Care)[employer] [id number] [id number] Health InsuranceAMBETTER TEDDY [id number] [facility] [id number] 2022-Present [phone] [place] [id number] [id number] Social History DateTypeDetailFacilityStart: 44-13-6016Bhdtmoz smoking status NHISNever smoked tobaccoNOMS HealthcareStart: 73-59-0165Uetgjzj use and exposureSmokeless tobacco non-userNOMS HealthcareStart: 08-12-2018 End: 84-17-8592Gcotukz of Social functionNOMS HealthcareStart: 08-12-2018 End: 97-33-7549Tlldjzt use panelNOMS HealthcareStart: 83-80-4540Xej assigned at birthNot on fileNOMS HealthcareStart: 50-26-1955Wxkjdp identityIdentifies as male gender (finding)[facility] HealthcareHow often do you need to have someone help you when you read instructions, pamphlets, or other written material from your doctor or pharmacy [SILS]NeverNOMS HealthcareDo you belong to any clubs or organizations such as uatsdin groups, unions, fraternal or athletic groups, or school groups?YesNOMS HealthcareAre you now , , , , never or living with a partner?MarriedNOMS HealthcareHow often to you have a drink containing alcohol?NeverNOMS HealthcareDo you feel stress - tense, restless, nervous, or anxious, or unable to sleep at night because yourmind is troubled all the time - these days [OSQ]To some extentNOMS Healthcare(I/We) worried whether (my/our) food would run out before (I/we) got money to buy more.Never trueNOMS HealthcareIn the past 12 months, was there a time when you were not able to pay the mortgage or rent on time?NoNOMS HealthcareTobacco smoking status NHISTobacco smoking consumption unknown [facility]ertart: 61-03-7060UhnVakv (finding)[facility] Note 07-14-2024 Note Date & ZbwbPgajSmzzidxg42-65-9630 Miscellaneous Notes* Telephone Encounter - Coretta Contreras - 07/14/2024 10:47 AM EDT Called [facility] regarding the screening colonoscopy referral that our office received from Dr Rodriguez,left a message on his voicemail to call the office back to schedule an appointment. Also called on: 07/12 LM TRC 5/7 LM TRC [facility] 07-14-2024 Note Date & OrbfRhrdJbhnsgrw74-23-1856 Telephone encounter Note* Telephone Encounter - Coretta Contreras - 07/14/2024 10:47 AM EDT Called [facility] regarding the screening colonoscopy referral that our office received from Dr Rodriguez,left a message on his voicemail to call the office back to schedule an appointment. Also called on: 07/12 LM TRC 5/7 LM TRC [facility] History of Present illness Narrative 07-06-2024 Note Date & IjkrZqxwTceizkfv62-33-4290 History of Present illness Narrative* Sami Rodriguez MD - 07/06/2024 11:23 AM EDTAssociated Problem(s): Streptococcus exposure C/o sore throat and with strep. Treat with amoxicillin. * Sami Rodriguez MD - 07/06/2024 11:22 AM EDTAssociated Problem(s): Generalized anxiety disorder (CMS/HCC) Mood controlled with prozac and continue. * Sami Rodriguez MD - 07/06/2024 11:22 AM EDTAssociated Problem(s): Essential hypertension, benign (CMS/HCC) BP elevated today but previously controlled and monitor PRN. * Sami Rodriguez MD - 07/06/2024 11:22 AM EDTAssociated Problem(s): Current mild episode of major depressive disorder without prior episode (HCC) (CMS/HCC) Mood controlled with prozac and continue. * Sami Rodriguez MD - 07/06/2024 11:22 AM EDTAssociated Problem(s): Class 3 severe obesity due to excess calories with serious comorbidity and body mass index (BMI) of 45.0 to 49.9 in adult Weight loss indicated. * Sami Rodriguez MD - 07/06/2024 11:22 AM EDTAssociated Problem(s): Bilateral leg edema Edema controlled with medication and continue. Elevate legs PRN. * Sami Rodriguez MD - 07/06/2024 10:45 AM EDT Images from the original note were not included. Subjective Patient ID: Moustapha Alarcon is a 64 y.o. male who presents for Follow-up (6m/congestions) and SoreThroat ( tested positive for strep yesterday). Follow up HTN, depression, anxiety, and edema. Patient doing well today. Checking BP PRN and typically controlled. BP elevated today. Taking medication daily and tolerating without side effects. Depression controlled with prozac. Not down or sad and feels happier. Anxiety stable. Not as stressed out or overwhelmed. Not as nervous or worry as much. Not as lundberg or irritable. Edema controlled with medication. Mild swelling at end of day and if on feet a lot. Edema improved in am and with elevation. recently diagnosed with strep. C/o congestion and sore throat. Requests treatment. Sore Throat Pertinent negatives include no abdominal pain, coughing, diarrhea, shortness of breath or vomiting. Review of Systems Constitutional: Negative for fatigue. HENT: Positive for sore throat. Respiratory: Negative for cough, shortness of breath and wheezing. Cardiovascular: Negative for chest pain and palpitations. Gastrointestinal: Negative for abdominal pain, diarrhea, nausea and vomiting. Genitourinary: Negative for dysuria. Objective Physical Exam Constitutional: General: He is not in acute distress. Appearance: Normal appearance. HENT: Head: Normocephalic. Right Ear: Tympanic membrane and ear canal normal. Left Ear: Tympanic membrane and ear canal normal. Eyes: Extraocular Movements: Extraocular movements intact. Pupils: Pupils are equal, round, and reactive to light. Cardiovascular: Rate and Rhythm: Normal rate and regular rhythm. Heart sounds: No murmur heard. No friction rub. No gallop. Pulmonary: Breath sounds: Normal breath sounds. No wheezing, rhonchi or rales. Abdominal: General: Bowel sounds are normal. There is no distension. Palpations: Abdomen is soft. Tenderness: There is no abdominal tenderness. There is no guarding or rebound. Musculoskeletal: Left lower leg: No edema. Neurological: Mental Status: He is alert. Assessment/Plan Problem List Items Addressed This Visit Essential hypertension, benign (CMS/HCC) - Primary BP elevated today but previously controlled and monitor PRN. Relevant Orders Basic metabolic panel Bilateral leg edema Edema controlled with medication and continue. Elevate legs PRN. Dyslipidemia (CMS/HCC) Relevant Orders Lipid panel Generalized anxiety disorder (CMS/HCC) Mood controlled with prozac and continue. Current mild episode of major depressive disorder without prior episode (HCC) (CMS/HCC) Mood controlled with prozac and continue. Class 3 severe obesity due to excess calories with serious comorbidity and body mass index (BMI) of45.0 to 49.9 in adult Weight loss indicated. Relevant Orders TSH Prediabetes Relevant Orders Hemoglobin A1c Encounter for long-term (current) use of medications Relevant Orders CBC and differential Hepatic function panel Polyuria Relevant Orders PSA Screening PSA (prostate specific antigen) Relevant Orders PSA Streptococcus exposure C/o sore throat and with strep. Treat with amoxicillin. Relevant Medications amoxicillin (Amoxil) 875 MG tablet Other Visit Diagnoses Colon cancer screening Relevant Orders Ambulatory referral to General Surgery documented in this encounterNOMS Healthcare History of Present illness Narrative 05-06-2024 Note Date & StovDeclNxjnzvei24-29-8309 History of Present illness Narrative* Telmatata Sheridan NP - 05/06/2024 12:00 PM EST Images from the original note were not included. [address] , [address] [facility], [address] P: [phone] F: [phone] HPI Historian of HPI: patient Moustapha Alarcon is a 64 y.o. male who presents today to the Urgent Care with the following complaints and denials which have been present for 1 day(s). C/O Denies Symptom Comments [] [x] Runny Nose [] [x] Difficulty Swallowing [] [x] Sore Throat [] [x] Cough [x] [] Ear Pain Left side, both side impacted with wax [] [x] Fever [] [x] Chills [] [x] Nasal Congestion [] [x] Myalgia [] [x] Sinus Pain [] [x] Sinus Pressure Additional Comments: Pt wears bilateral hearing aids. Pt reports he was at a hearing appointment at [facility] today and they said my ears are impacted . ROS A complete system ROS was performed and negative aside from the pertinent positives noted in the HPI and PE. Visit Vitals BP 130/80 Pulse 66 Temp 98 F Resp 20 Wt 346 lb SpO2 96% BMI 43.25 kg/m Smoking Status Never BSA 2.88 m IH Testing: PHYSICAL EXAM Physical Exam Vitals reviewed. Constitutional: General: He is not in acute distress. Appearance: Normal appearance. HENT: Head: Normocephalic and atraumatic. Right Ear: There is impacted cerumen. Left Ear: There is impacted cerumen. Nose: Nose normal. Mouth/Throat: Mouth: Mucous membranes are moist. Pharynx: Oropharynx is clear. Eyes: Extraocular Movements: Extraocular movements intact. Conjunctiva/sclera: Conjunctivae normal. Pupils: Pupils are equal, round, and reactive to light. Cardiovascular: Rate and Rhythm: Normal rate. Pulses: Normal pulses. Pulmonary: Effort: Pulmonary effort is normal. No respiratory distress. Breath sounds: No wheezing, rhonchi or rales. Musculoskeletal: General: Normal range of motion. Cervical back: Normal range of motion and neck supple. Skin: General: Skin is warm and dry. Capillary Refill: Capillary refill takes less than 2 seconds. Findings: No rash. Neurological: General: No focal deficit present. Mental Status: He is alert and oriented to person, place, and time. Psychiatric: Mood and Affect: Mood normal. Behavior: Behavior normal. Thought Content: Thought content normal. Judgment: Judgment normal. TREATMENT PLAN 1. Diminished hearing, bilateral (Primary) Pt was at a hearing appointment at [facility] today and states, They said my ears are impacted . 2. Impacted cerumen, bilateral Bilateral ears lavaged successfully. Recommended use of 1/2 strength hydrogen peroxide rinses threetimes weekly to manage cerumen accumulation. Follow up as needed for repeat lavage. * Pooja Momin LPN - 05/06/2024 12:00 PM EST Images from the original note were not included. Patient ID: Moustapha Alarcon is a 64 y.o. male. Procedures bi lat ear lavage successful, pt tolerated well. Water, peroxide, and curette spoon used. documented in this encounterNOMS Healthcare History of Present illness Narrative 11-07-2023 Note Date & MdzuXtdqNvtildhx79-81-8522 History of Present illness Narrative* Sami Rodriguez MD - 11/07/2023 9:46 AM EDTAssociated Problem(s): Morbid obesity due to excess calories ([facility]) Weight down 7 pounds since last visit. * Sami Rodriguez MD - 11/07/2023 9:46 AM EDTAssociated Problem(s): Generalized anxiety disorder (CMS/HCC) Mood controlled with prozac and continue. * Sami Rodriguez MD - 11/07/2023 9:46 AM EDTAssociated Problem(s): Essential hypertension, benign (CMS/HCC) BP elevated today but previously controlled and monitor PRN. * Sami Rodriguez MD - 11/07/2023 9:45 AM EDTAssociated Problem(s): Current mild episode of major depressive disorder without prior episode (HCC) (CMS/HCC) Mood controlled with prozac and continue. * Sami Rodriguez MD - 11/07/2023 9:45 AM EDTAssociated Problem(s): Bilateral leg edema Edema controlled with medication and continue. Elevate legs PRN. * Sami Rodriguez MD - 11/07/2023 9:45 AM EDTAssociated Problem(s): Allergic rhinitis due to pollen Symptoms controlled with medication and continue. * Sami Rodriguez MD - 11/07/2023 9:15 AM EDT Images from the original note were not included. Subjective Patient ID: Moustapha Alarcon is a 63 y.o. male who presents for Follow-up (6 m). Follow up HTN, depression, anxiety, edema, and allergies. Patient doing well today. Not checking BPaway from office and elevated today. Taking medication daily and tolerating without side effects. Previously BP controlled. Depression controlled with prozac. Not down or sad and feels happier. Anxiety stable. Not as stressed out or overwhelmed. Not as nervous or worry as much. Not as lundberg or irritable. Edema controlled with medication. Mild swelling at end of day and if on feet a lot. Edema improved in am and with elevation. Allergies controlled with medication. No congestion or rhinorrhea. No PRIETO or sinus pressure. Ears not plugged or popping. Review of Systems Constitutional: Negative for fatigue. Respiratory: Negative for cough, shortness of breath and wheezing. Cardiovascular: Negative for chest pain and palpitations. Gastrointestinal: Negative for abdominal pain, diarrhea, nausea and vomiting. Genitourinary: Negative for dysuria. Objective Physical Exam Constitutional: General: He is not in acute distress. Appearance: Normal appearance. HENT: Head: Normocephalic. Right Ear: Tympanic membrane and ear canal normal. Left Ear: Tympanic membrane and ear canal normal. Eyes: Extraocular Movements: Extraocular movements intact. Pupils: Pupils are equal, round, and reactive to light. Cardiovascular: Rate and Rhythm: Normal rate and regular rhythm. Heart sounds: No murmur heard. No friction rub. No gallop. Pulmonary: Breath sounds: Normal breath sounds. No wheezing, rhonchi or rales. Abdominal: General: Bowel sounds are normal. There is no distension. Palpations: Abdomen is soft. Tenderness: There is no abdominal tenderness. There is no guarding or rebound. Musculoskeletal: Left lower leg: No edema. Neurological: Mental Status: He is alert. Assessment/Plan Problem List Items Addressed This Visit Essential hypertension, benign (CMS/HCC) - Primary BP elevated today but previously controlled and monitor PRN. Bilateral leg edema Edema controlled with medication and continue. Elevate legs PRN. Allergic rhinitis due to pollen Symptoms controlled with medication and continue. Generalized anxiety disorder (CMS/HCC) Mood controlled with prozac and continue. Current mild episode of major depressive disorder without prior episode (HCC) (CMS/HCC) Mood controlled with prozac and continue. Other Visit Diagnoses Body mass index (BMI) 40.0-44.9, adult (CMS/HCC) documented in this encounterNOMS Healthcare Evaluation note Note Date & TypeNoteFacilityEvaluation note* Diagnosis Essential hypertension, benign (CMS/HCC)- Primary Essential hypertension, benign Current mild episode of major depressive disorder without prior episode (HCC) (CMS/HCC) Generalized anxiety disorder (CMS/HCC) Generalized anxiety disorder Bilateral leg edema Edema Seasonal allergic rhinitis due to pollen Body mass index (BMI) 40.0-44.9, adult (CMS/HCC) documented in this encounter [facility] Evaluation note Note Date & TypeNoteFacilityEvaluation note* Diagnosis Essential hypertension, benign (CMS/HCC)- Primary Essential hypertension, benign Current mild episode of major depressive disorder without prior episode (HCC) (CMS/HCC) Generalized anxiety disorder (CMS/HCC) Generalized anxiety disorder Bilateral leg edema Edema Seasonal allergic rhinitis due to pollen Essential hypertension, benign (CMS/HCC)- Primary Essential hypertension, benign Current mild episode of major depressive disorder without prior episode (HCC) ([facility]/HCC) Generalized anxiety disorder ([facility]/HCC) Generalized anxiety disorder Bilateral leg edema Edema Seasonal allergic rhinitis due to pollen Body mass index (BMI) 40.0-44.9, adult ([facility]) Diminished hearing, bilateral- Primary Impacted cerumen, bilateral documented in this encounter [facility] Healthcare Evaluation note Note Date & TypeNoteFacilityEvaluation note* Diagnosis Essential hypertension, benign (CMS/HCC)- Primary Essential hypertension, benign Current mild episode of major depressive disorder without prior episode (HCC) (CMS/HCC) Generalized anxiety disorder ([facility]/HCC) Generalized anxiety disorder Bilateral leg edema Edema Seasonal allergic rhinitis due to pollen Essential hypertension, benign (CMS/HCC)- Primary Essential hypertension, benign Current mild episode of major depressive disorder without prior episode (HCC) ([facility]/HCC) Generalized anxiety disorder ([facility]/HCC) Generalized anxiety disorder Bilateral leg edema Edema Seasonal allergic rhinitis due to pollen Body mass index (BMI) 40.0-44.9, adult ([facility]/HCC) Essential hypertension, benign (CMS/HCC)- Primary Essential hypertension, benign Current mild episode of major depressive disorder without prior episode (HCC) ([facility]/HCC) Generalized anxiety disorder ([facility]/HCC) Generalized anxiety disorder Bilateral leg edema Edema Class 3 severe obesity due to excess calories with serious comorbidity and body mass index (BMI) of45.0 to 49.9 in adult Dyslipidemia ([facility]) Other and unspecified hyperlipidemia Encounter for long-term (current) use of medications Encounter for long-term (current) use of other medications Polyuria Prediabetes Other abnormal glucose Screening PSA (prostate specific antigen) Special screening for malignant neoplasm of prostate Streptococcus exposure Colon cancer screening Special screening for malignant neoplasms, colon documented in this encounter [facility] Instructions Note Date & TypeNoteFacilityInstructionsNot on filedocumented in this encounter [facility] Summary Purpose Family History No Family History Records FoundNo Family History Records Found Advance Directives No Advanced Directives Records FoundNo Advanced Directives Records Found Additional Source Comments (unrecognized sect ion and content) No Status Records FoundNo Status Records Found INFORMATION SOURCE (unrecogn ized section and content) DATE CREATED AUTHOR 12/03/2021 [facility] DATE CREATED AUTHOR AUTHOR'S ORGANIZ ATION 07/09/2024 [facility] EPIC Reason for Visit (unrecogniz ed section and content) ReasonCommentsFollow-up6 mReasonCommentsFollow-[id number] ThroatWife tested positive for strep yesterday Care Teams (unrecognized sec tion and content) Team MemberRelationshipSpecialtyStart DateEnd Date Sami Rodriguez MD [address] [place] [phone] PCP - [facility] Medicine04/16/23Team MemberRelationshipSpecialtyStart DateEnd Date Sami Rodriguez MD [address] [place] [phone] [facility]Team MemberRelationshipSpecialtyStart DateEnd Date Sami Rodriguez MD [address] [place] [phone] PCP - [facility] Medicine04/16/23Team MemberRelationshipSpecialtyStart DateEnd Date Sami Rodriguez MD [address] [place] [phone] [facility]04/16/23Te MemberRelationshipSpecialtyStfair [place] DateEnd Date Sami Rodriguez MD [address] [place] [phone] [facility]04/16/23Te MemberRelationshipSpecialtyStart DateEnd Date Sami Rodriguez MD [address] [place] [phone] [facility]04/16/23Te MemberRelationshipSpecialtyStfair oaks DateEnd Date Sami Rodriguez MD [address] [place] [phone] [facility]07/07/24 FOR RECORDS PERTAINING TO PATIENTS WHO ARE OR HAVE BEEN ENROLLED IN A CHEMICAL DEPENDENCY/SUBSTANCEABUSE PROGRAM, SOME INFORMATION MAY BE OMITTED. This clinical summary was aggregated from multiple sources. Caution should be exercised in using it in the provision of clinical care. This summary normalizes information from multiple sources, and as a consequence, information in this document may materially change the coding, format and clinical context of patient data. In addition, data may be omitted in some cases. CLINICAL DECISIONS SHOULD BE BASED ON THE PRIMARY CLINICAL RECORDS. [facility] [facility]. provides no warranty or guarantee of the accuracy or completeness of information in this document.
[2025-01-10 11:25] LABS: Hematocrit 45.2 % (42.0-54.0); Hemoglobin 14.5 g/dL (14.0-18.0); Immature Granulocytes Abs Auto 0.03 10^3/uL (0.00-0.03); Immature Granulocytes Pct Auto 0.4 % (0.0-0.5); Lymphocytes Absolute Auto 1.8 10^3/uL (1.2-3.8); Mean Corpuscular HGB Conc 32.1 g/dL (29.9-35.2); Mean Corpuscular Hemoglobin 27.8 pg (25.9-34.0); Mean Corpuscular Volume 86.6 fL (80.0-94.0); Platelet Count 240 10^3/uL (150-450); Red Blood Count 5.22 10^6/uL (4.70-6.10); White Blood Count 6.8 10^3/uL (4.0-11.0)
[2025-01-10 12:35] LABS: Alanine Aminotransferase 34 U/L (16-63); Albumin Globulin Ratio 1.1; Albumin Level 3.8 g/dL (3.4-5.0); Alkaline Phosphatase 68 U/L (46-116); Anion Gap 12.5; Aspartate Amino Transferase 16 U/L (15-37); Blood Urea Nitrogen 13.0 mg/dL (7.0-18.0); Calcium 9.1 mg/dL (8.5-10.1); Carbon Dioxide 25.8 mmol/L (21.0-32.0); Chloride 105 mmol/L (98-107); Cholesterol 243 mg/dL (<=200); Estimated GFR (African America >60 (>=60 mL/min/1.73m^2); Estimated GFR (Non-African Ame >60 (>=60 mL/min/1.73m^2); Globulin 3.5 g/dL; Glucose 123 mg/dL (74-106); HDL Cholesterol 35 mg/dL (40-60); Potassium 4.3 mmol/L (3.5-5.1); Sodium 139 mmol/L (136-145); Thyroid Stimulating Hormone 3.102 uIU/mL (0.358-3.740); Total Protein 7.3 g/dL (6.4-8.2); Triglycerides 235 mg/dL (<=150); VLDL CHOLESTEROL 47.0 mg/dL
== END 2025-01-10 10:44 | disposition home or self-care (01) ==
PROVIDERS: PCP Family Medicine; Visit Provider Family Medicine
DX: E78.5 Hyperlipidemia, unspecified (principal); E66.9 Obesity, unspecified; R73.03 Prediabetes; Z79.899 Other long term (current) drug therapy; Z12.5 Encounter for screening for malignant neoplasm of prostate
CPT/HCPCS: 36415; 80053; 80061; 83036; 84443; 85025; G0103